=== PATIENT | male | born 1995 | race Caucasian/White ===

== ENCOUNTER 2021-06-15 16:36 | Emergency (ER) | payer SELFPAY ==
[~2021-06-15 16:36] MED LIST: FLEXERIL 10 MG10 MG PO; IBUPROFEN600 MG PO; IBUPROFEN800 MG PO; LODINE CAP 300300 MG PO; ZOFRAN ODT 4 MG4 MG PO
[2021-06-15 18:16] LABS: HEMOGLOBIN 15.4 gm/dl (14.0-17.5); RED BLOOD COUNT 5.21 M/UL (4.20-5.50)
[2021-06-15 18:39] LABS: BUN/CREATININE RATIO 9 (0-10)
[2021-06-15] MEDS ORDERED: TORADOL 10 MG T10 MG PO (19:24)
[2021-06-15] MEDS ORDERED: ZOFRAN ODT 4 MG4 MG SL (19:24)
== END 2021-06-15 19:21 | disposition home or self-care (01) ==
LOC: ER1 16:36
PROVIDERS: Physician Assistant
DX: M54.5 Low back pain (principal); Z87.442 Personal history of urinary calculi; Z79.899 Other long term (current) drug therapy; F17.290 Nicotine dependence, other tobacco product, uncomplicated
CPT/HCPCS: 80053; 81001; 85025; 96372; 99283; J1885